=== PATIENT | male | born 1955 | race Caucasian/White ===

== ENCOUNTER → 2019-12-24 10:30 | Outpatient (CLI) | payer BC, SELFPAY ==
--- NOTE | 2019-12-24 10:33 | CT_ITS ---
HISTORY: INTERMITTENT LUQ PAIN X8 MONTHS ADDITIONAL HISTORY: None provided. EXAMINATION/TECHNIQUE: CT Abdomen And Pelvis W/ Contrast Injection CONTRAST: 100 mL Isovue-300 IV contrast. Enteric contrast was given. A radiation dose optimization technique was used for this scan. Number of images including paperwork: [id number] COMPARISON: None FINDINGS: LOWER THORAX: No consolidation or pleural effusion. Minimal basilar subsegmental atelectasis versus scarring. LIVER: No concerning focal lesion. GALLBLADDER: No radiopaque calculi. BILE DUCTS: No significant biliary dilatation. SPLEEN: Unremarkable. PANCREAS: Unremarkable. ADRENAL GLANDS: Unremarkable. KIDNEYS/URETERS: Unremarkable. BOWEL: No bowel obstruction. No significant bowel wall thickening. No localized inflammation. APPENDIX: No evidence of appendicitis. FREE FLUID: No significant free fluid. FREE AIR: None. LYMPH NODES: No pathologic appearing adenopathy. PERITONEUM, RETROPERITONEUM AND MESENTERY: Otherwise unremarkable. VASCULATURE: Atherosclerotic calcification. PELVIS: Unremarkable bladder. Upper normal prostate size. ABDOMINAL WALL: Unremarkable. OSSEOUS AND SOFT TISSUE STRUCTURES: No acute skeletal findings. Degenerative changes. CT/Abdomen/Pelvis WITH Contrast IMPRESSION: No acute abdominopelvic abnormality. No abnormality detected to explain the patient's symptoms. Individualized dose optimization techniques were used for this CT. at 2341 Reported and signed by: Jazmyn Espinoza MD Electronically Signed: Jazmyn Espinoza MD at 23:41 EDT Tel , Service support ,
[2019-12-24 13:41] LABS: CREATININE FINGERSTICK 0.7 mg/dL (0.70-1.30)
== END ==
PROVIDERS: PCP Family Medicine; Referring Provider Family Medicine; Visit Provider Family Medicine
DX: R10.32 Left lower quadrant pain (principal)
CPT/HCPCS: 74177; Q9967